=== PATIENT | female | born 1945 | race Two or more races ===

== ENCOUNTER 2020-10-11 16:47 | Outpatient (REF) | payer MEDICARE, SELFPAY ==
[2020-10-11 16:54] LABS: Glucose Urine UA NEG (NEG); Leukocyte Esterase Urine NEG (NEG); Nitrite Urine NEG (NEG); Urine Blood NEG (NEG); Urine Ketones NEG (NEG); Urine Protein NEG (NEG-TRACE)
[2020-10-11 16:56] LABS: Appearance Urine HAZY; Color Urine YELLOW
== END 2020-10-11 16:48 | disposition home or self-care (01) ==
LOC: HO.LNP 16:47
PROVIDERS: Visit Provider Internal Medicine
DX: R30.0 Dysuria (principal)
CPT/HCPCS: 81003

== ENCOUNTER 2021-02-22 15:20 | Outpatient (REF) | payer MEDICARE, SELFPAY ==
[2021-02-22 16:30] LABS: Hematocrit 43.1 % (37-47); Hemoglobin 13.6 g/dl (12.0-16.0); Mean Corpuscular HGB Conc 31.6 g/dl (31.0-35.0); Mean Corpuscular Hemoglobin 29.2 pg (27.0-33.0); Mean Corpuscular Volume 92.7 fL (80-98); Mean Platelet Volume 10.9 fL (9.4-12.3); Platelet Count 259 X10*3/uL (160-400); Red Blood Count 4.65 X10*6/uL (4.20-5.50); Red Cell Distribution Width 14.7 % (11.0-16.0); White Blood Count 7.1 X10*3/uL (4.8-10.8)
[2021-02-22 16:44] LABS: Glucose Urine UA NEG (NEG); Leukocyte Esterase Urine NEG (NEG); Nitrite Urine NEG (NEG); Specific Gravity - Urine >= 1.030 (1.005-1.025); Urine Blood NEG (NEG); Urine Ketones NEG (NEG); Urine Protein NEG (NEG-TRACE)
[2021-02-22 16:46] LABS: Appearance Urine HAZY; Color Urine YELLOW
[2021-02-22 16:54] LABS: Alanine Aminotransferase 32 U/L (0-31); Albumin Level 3.8 g/dL (3.5-5.0); Alkaline Phosphatase 171 U/L (39-117); Anion Gap 10 (12-20); Aspartate Amino Transferase 27 U/L (5-31); Bilirubin Total 0.6 mg/dL (0.0-1.0); Blood Urea Nitrogen 14 mg/dL (9-16); Calcium 8.9 mg/dL (8.4-10.2); Carbon Dioxide 29 mmol/L (22-29); Chloride 106 mmol/L (96-108); Estimated Glomerular Filt Rate > 60; Glucose Random 87 mg/dL (60-115); Sodium 141 mmol/L (135-145); Total Protein 7.2 g/dL (6.5-8.0)
== END 2021-02-22 15:21 | disposition home or self-care (01) ==
LOC: HO.HMGCLDS 15:20
PROVIDERS: PCP Internal Medicine; Visit Provider Internal Medicine
DX: R10.9 Unspecified abdominal pain (principal); R30.0 Dysuria
CPT/HCPCS: 36415; 80053; 81003; 85027

== ENCOUNTER 2021-10-25 10:46 | Outpatient (REF) | payer MEDICARE, SELFPAY ==
[2021-10-25 14:03] LABS: Hematocrit 46.3 % (37.0-47.0); Hemoglobin 14.8 g/dl (12.0-16.0); Mean Corpuscular Hemoglobin 29.5 pg (27.0-33.0); Mean Corpuscular Volume 92.4 fL (80.0-98.0); Mean Platelet Volume 11.9 fL (9.4-12.3); Platelet Count 256 X10*3/uL (160-400); Red Blood Count 5.01 X10*6/uL (4.20-5.50); Red Cell Distribution Width 14.5 % (11.0-16.0); White Blood Count 9.8 X10*3/uL (4.8-10.8)
[2021-10-25 14:34] LABS: Alanine Aminotransferase 42 U/L (0-31); Albumin Level 3.8 g/dL (3.5-5.0); Alkaline Phosphatase 189 U/L (39-117); Anion Gap 12 (12-20); Aspartate Amino Transferase 23 U/L (5-31); Bilirubin Total 0.8 mg/dL (0.0-1.0); Blood Urea Nitrogen 17 mg/dL (9-16); C Reactive Protein 0.06 mg/dL (< or = 0.50); Calcium 8.7 mg/dL (8.4-10.2); Carbon Dioxide 26 mmol/L (22-29); Chloride 104 mmol/L (96-108); Cholesterol 198 mg/dL; Estimated Glomerular Filt Rate > 60; Glucose Fasting 89 mg/dL (60-99); HDL Cholesterol 66 mg/dL; LDL Cholesterol Calculated 110 mg/dl; Potassium 4.3 mmol/L (3.3-5.1); Sodium 138 mmol/L (135-145); Total Protein 7.4 g/dL (6.5-8.0); Triglycerides 113 mg/dL
[2021-10-25 14:39] LABS: TSH reflex Free T4 6.86 uIU/mL (0.32-4.0)
[2021-10-25 15:23] LABS: Free T4 (Free Thyroxine) 0.84 ng/dL (0.71-1.85)
== END 2021-10-25 10:47 | disposition home or self-care (01) ==
LOC: HO.HMGCLDS 10:46
PROVIDERS: Visit Provider Internal Medicine
DX: I10 Essential (primary) hypertension (principal); R53.83 Other fatigue
CPT/HCPCS: 36415; 80053; 80061; 84439; 84443; 85027; 86140

== ENCOUNTER 2021-11-14 08:30 | Outpatient (REF) | payer MEDICARE, SELFPAY | END 2021-11-14 08:31 | disposition home or self-care (01) | LOC: HO.HOSX 08:30 | PROVIDERS: Visit Provider Orthopaedic Surgery | DX: Z13.89 Encounter for screening for other disorder (principal) ==

== ENCOUNTER 2021-11-24 08:55 | Outpatient (REF) | payer MEDICARE, SELFPAY | END 2021-11-24 08:56 | disposition home or self-care (01) | LOC: HO.HOSX 08:55 | PROVIDERS: Visit Provider Orthopaedic Surgery | DX: Z13.89 Encounter for screening for other disorder (principal) ==

== ENCOUNTER 2022-04-27 06:06 | Outpatient (REF) | payer MEDICARE, SELFPAY ==
[2022-04-27 11:51] LABS: Appearance Urine CLEAR; Color Urine YELLOW; Glucose Urine UA NEG (NEG); Leukocyte Esterase Urine NEG (NEG); Nitrite Urine NEG (NEG); PH 6.5 (5.0-8.0); Urine Blood NEG (NEG); Urine Ketones NEG (NEG); Urine Protein NEG (NEG-TRACE)
[2022-04-27 12:30] LABS: TSH reflex Free T4 7.77 uIU/mL (0.32-4.0)
[2022-04-27 12:33] LABS: Alanine Aminotransferase 19 U/L (0-31); Albumin Level 3.6 g/dL (3.5-5.0); Alkaline Phosphatase 262 U/L (39-117); Anion Gap 13 (12-20); Aspartate Amino Transferase 20 U/L (5-31); Bilirubin Total 0.3 mg/dL (0.0-1.0); Blood Urea Nitrogen 17 mg/dL (9-16); Calcium 8.3 mg/dL (8.4-10.2); Carbon Dioxide 26 mmol/L (22-29); Chloride 108 mmol/L (96-108); Estimated Glomerular Filt Rate > 60; Glucose Fasting 99 mg/dL (60-99); Potassium 4.2 mmol/L (3.3-5.1); Sodium 143 mmol/L (135-145); Total Protein 6.9 g/dL (6.5-8.0)
== END 2022-04-27 06:07 | disposition home or self-care (01) ==
LOC: HO.HMGCLDS 06:06
PROVIDERS: PCP Internal Medicine; Visit Provider Internal Medicine
DX: I10 Essential (primary) hypertension (principal); R30.0 Dysuria; E03.9 Hypothyroidism, unspecified
CPT/HCPCS: 36415; 80053; 81003; 84439; 84443

== ENCOUNTER 2022-05-04 11:19 | Outpatient (REF) | payer MEDICARE, SELFPAY ==
[2022-05-04 14:10] LABS: Gamma Glutamyl Transpeptidase 29 U/L (7-33)
[2022-05-10 14:56] LABS: Anti Nuclear Antibody Screen NEGATIVE (NEGATIVE)
[2022-05-10 16:11] LABS: Mitochondrial Antibodies NEGATIVE (NEGATIVE)
== END 2022-05-04 11:20 | disposition home or self-care (01) ==
LOC: HO.HMGCLDS 11:19
PROVIDERS: PCP Internal Medicine; Visit Provider Internal Medicine
DX: R74.8 Abnormal levels of other serum enzymes (principal); R10.9 Unspecified abdominal pain
CPT/HCPCS: 36415; 82977; 86038; 86039; 86255; 86256

== ENCOUNTER 2023-01-31 11:10 | Outpatient (REF) | payer MEDICARE, SELFPAY ==
--- NOTE | ~2023-01-31 | XR_ITS ---
EXAMINATION: XR LUMBOSACRAL SPINE CLINICAL INFORMATION: Hypothyroidism. COMPARISON: None available. TECHNIQUE: Three views of the lumbosacral spine. FINDINGS: There is normal lumbar lordosis. The vertebral heights, alignment and disc heights are normal. There is moderate ventral spondylosis lower dorsal and upper lumbar spine. No aggressive lytic or sclerotic process seen the SI joints are symmetrical and normal. The paravertebral soft tissues are normal. XR/XR lumbar spine 2-3V IMPRESSION: Moderate ventral spondylosis lower dorsal and upper lumbar spine. No visible acute fracture, dislocation or lytic process seen.
[2023-01-31 13:53] LABS: MANUAL DIFF FLAG NO
[2023-01-31 14:16] LABS: Basophils Percent Auto 0.5 % (0-2); Eosinophils Absolute Auto 0.2 X10*3/uL (0.0-0.4); Eosinophils Percent Auto 3.2 % (0-4); Hemoglobin 13.2 g/dl (12.0-16.0); Imm Gran Abs Auto 0.04 X10*3/uL (0.00-0.03); Imm Gran Pct Auto 0.7 % (0.0-0.4); Lymphocytes Percent Auto 17.1 % (20-40); Mean Corpuscular HGB Conc 31.4 g/dl (31.0-35.0); Mean Corpuscular Volume 92.3 fL (80.0-98.0); Mean Platelet Volume 11.4 fL (9.4-12.3); Monocytes Absolute Auto 0.3 X10*3/uL (0.1-1.2); Monocytes Percent Auto 5.3 % (2-11); Neutrophils Absolute Auto 4.4 x10*3/uL (2.0-8.3); Neutrophils Percent Auto 73.2 % (45-73); Platelet Count 213 X10*3/uL (160-400); Red Blood Count 4.55 X10*6/uL (4.20-5.50); Red Cell Distribution Width 14.1 % (11.0-16.0)
[2023-01-31 14:33] LABS: Alanine Aminotransferase 21 U/L (0-31); Albumin Level 3.6 g/dL (3.5-5.0); Alkaline Phosphatase 195 U/L (39-117); Anion Gap 9 (12-20); Aspartate Amino Transferase 22 U/L (5-31); Bilirubin Total 0.5 mg/dL (0.0-1.0); Blood Urea Nitrogen 12 mg/dL (9-16); Calcium 8.8 mg/dL (8.4-10.2); Carbon Dioxide 31 mmol/L (22-29); Chloride 107 mmol/L (96-108); Cholesterol 185 mg/dL; Estimated Glomerular Filt Rate > 60; Glucose Fasting 89 mg/dL (60-99); HDL Cholesterol 59 mg/dL; LDL Cholesterol Calculated 106 mg/dl; Potassium 4.8 mmol/L (3.3-5.1); Sodium 142 mmol/L (135-145); Total Protein 6.9 g/dL (6.5-8.0); Triglycerides 102 mg/dL
== END 2023-01-31 11:11 | disposition home or self-care (01) ==
LOC: HO.HMGCX 11:10
PROVIDERS: PCP Internal Medicine; Visit Provider Internal Medicine
DX: E03.9 Hypothyroidism, unspecified (principal); I10 Essential (primary) hypertension; M47.816 Spondylosis without myelopathy or radiculopathy, lumbar region
CPT/HCPCS: 36415; 72100; 80053; 80061; 85025

== ENCOUNTER 2023-07-11 11:13 | Outpatient (AMB) | payer MEDICARE, SELFPAY ==
[2023-07-11 11:24] VITALS: BP 130/80; PULSE 94; O2SAT 99; BMI 31.6
--- NOTE | 2023-07-11 11:24 | A.OFFPC_ITS ---
Vital Signs 07/11/23 11:24 Height 4 ft 10 in Weight 151 lb BMI 31.6 BP 130/80 Blood Pressure Location Lt brachial Position Sitting Pulse 94 Pulse Source Pulse Oximeter Pulse Oximetry (%) 99 Oxygen Delivery Method Room Air Intake Visit Reasons: Annual Physical Intake Note: Pt is here today for PE. Allergies acetaminophen [Tylenol] Allergy (Unknown, Verified 07/11/23 11:28) upset stomach sertraline Adverse Reaction (Intermediate, Verified 07/11/23 11:28) sleepiness Medication List - Last Reconciled 07/11/23 by Mayi Perez MD diclofenac sodium 1% 2 grams topical QID metoprolol succinate ER 100 mg PO DAILY omeprazole 40 mg PO DAILY phenazopyridine (Pyridium) 100 mg PO TID PRN 6 doses Tobacco use date assessed: 07/11/23 HPI HPI Comments History of Present Illness Details Pt presents for f/u HTN. Pt follows up with for advanced OA of R knee with [facility] and is planning to have a knee replacement surgery. She complains of feeling anxious and depressed but denies suicidal ideation. She tries sertraline in the past because excessive sleepiness. [facility] Medical History (Updated 07/11/23 @ 12:05 by Mayi Perez MD) GERD (gastroesophageal reflux disease) Anxiety Fatigue Knee osteoarthritis Depression Abdominal pain Dysuria Positive H. pylori test Chronic constipation Urinary frequency HTN (hypertension) Surgical History Hx of cholecystectomy H/O colonoscopy Social History Housing: House Patient Tobacco Use Status: Never used Tobacco e-Cigarette/Vaping Use: Never Used Current occupational status: retired Cognitive needs: No Hearing needs: No Vision needs: Yes Questionnaire PHQ-9 Over the last 2 weeks, how often have you been bothered by any of the following problems? 1. Little interest or pleasure in doing things: not at all 2. Feeling down, depressed, or hopeless: not at all 3. Trouble falling or staying asleep, or sleeping too much: not at all 4. Feeling tired or having little energy: not at all 5. Poor appetite or overeating: not at all 6. Feeling bad about yourself - or that you are a failure or have let yourself or your family down: not at all 7. Trouble concentrating on things, such as reading the newspaper or watching television: not at all 8. Moving or speaking so slowly that other people could have noticed. Or the opposite - being so fidgety or restless that you have been moving around a lot more than usual: not at all 9. Thoughts that you would be better off or of hurting yourself in some way : not at all Total score: 0 Depression Screening Interpretation: Negative Depression Screening Done: Yes Source: Developed by Drs. Idris Avendaño, Ebonie Muir, Sumanth Steele and colleagues, with an educational kathia from [employer]. Thrive Questionnaire Date Thrive assessed: 07/11/23 I am a: Patient What is your living situation today?: I have a steady place to live Within the past 12 months, did the food you bought not last and you didn't have the money to get more?: Never true Within the past 12 months, did you worry whether your food would run out before you got money to buy more?: Never true Do you have trouble paying for medicines?: No Do you have trouble getting transportation to medical appointments?: No Do you have trouble paying your heating and electricity bill?: No Do you have trouble taking care of your child, family member or friend?: No Do you have trouble with day-to-day activities such as bathing, preparing meals, shopping, managing finances, etc.?: No Are you currently unemployed and looking for a job?: No Are you interested in more education?: No Please select the resources that you would like help with: None AUDIT C Alcohol Use Questionnaire (AUDIT-C) 1. How often do you have a drink containing alcohol?: Never 3. How often do you have six or more drinks on one occasion?: Never Total Score: 0 CANDY-7 AMB Questionnaire CANDY-7 Date CANDY - 7 assessed: 07/11/23 Feeling nervous, anxious, or on edge: 0 = Not at all Not being able to stop or control worryin = Not at all Worrying too much about different things: 0 = Not at all Trouble relaxin = Not at all Being so restless that it is hard to sit still: 0 = Not at all Becoming easily annoyed or irritable: 0 = Not at all Feeling afraid as if something awful might happen: 0 = Not at all Total CANDY-7 score (0-4 normal; 5-9 mild; 10-14 moderate; 15-21 severe): 0 Source: Developed by Drs. Idris Avendaño, Ebonie Muir, Sumanth Steele and colleagues, with an educational kathia from [employer]. Review of Systems Const All systems reviewed & are unremarkable except as noted in HPI and below Reports no additional complaints Eyes Reports no additional complaints ENT Reports no additional complaints Card Reports no additional complaints Resp Reports no additional complaints GI Reports no additional complaints Reports no additional complaints Physical exam (Primary Care) Vital Signs: Last Vital Signs Pulse 94 07/11/23 11:24 BP 130/80 07/11/23 11:24 Pulse Ox 99 07/11/23 11:24 Oxygen Delivery Method Room Air 07/11/23 11:24 BMI result Body Mass Index 31.6 Tobacco/Smoking Status: Tobacco use Status Tobacco use date assessed 07/11/23 07/11/23 11:31 Patient Tobacco Use Status Never used Tobacco 07/11/23 11:31 e-Cigarette/Vaping Use Never Used 07/11/23 11:31 PHQ-9: PHQ-9 Score PHQ-9: Total score 0 07/11/23 12:03 Depression Screening Interpretation: Negative Thrive Assessment: Date of Thrive Assessment Date Thrive assessed 07/11/23 07/11/23 11:31 Const General: no acute distress HENMT Head: Yes normal to inspection Ears: hearing grossly normal bilaterally Face and sinus: Yes normal facial exam Throat: Yes posterior oropharynx normal Neck Neck: Yes no lymphadenopathy and Yes supple Resp Effort & Inspection: normal respiratory effort Auscultation: clear to auscultation bilaterally Cardio Rhythm: regular rhythm Heart sounds: S1 normal heart sound present and S2 normal heart sound present GI Inspection: Yes normal to inspection Palpation (GI): Soft to palpation Percussion: Yes normal to percussion Auscultation: normal bowel sounds Assessment and Plan Assessment & Plan (1) Urinary frequency: Comment: follow up with urology Code(s): R35.0 - Frequency of micturition (2) Knee osteoarthritis: Comment: ortho [facility] Code(s): M17.10 - Unilateral primary osteoarthritis, unspecified knee (3) Hypothyroid: Code(s): E03.9 - Hypothyroidism, unspecified Plan: Check TSH level today (4) HTN (hypertension): Comment: BP goal less than 130/80 Code(s): I10 - Essential (primary) hypertension Plan: Continue metoprolol (5) Anxiety: Code(s): F41.9 - Anxiety disorder, unspecified Plan: Start 10 mg of fluoxetine Orders: Orders UA w Microscopic Today R35.0 - Frequency of micturition TSH reflex Free T4 Today E03.9 - Hypothyroidism, unspecified Comprehensive Met. Panel Today E03.9 - Hypothyroidism, unspecified Medications: New fluoxetine 10 mg PO DAILY 30 caps 4RF Coding Level of Care Code Est Pt Level 4 (39480) Diagnoses Urinary frequency R35.0 Knee osteoarthritis M17.10 Hypothyroid E03.9 HTN (hypertension) I10 Anxiety F41.9
== END 2023-07-11 12:22 | disposition home or self-care (01) ==
PROVIDERS: PCP Internal Medicine; Visit Provider Internal Medicine
DX: R35.0 Frequency of micturition (principal); M17.10 Unilateral primary osteoarthritis, unspecified knee; E03.9 Hypothyroidism, unspecified; I10 Essential (primary) hypertension; F41.9 Anxiety disorder, unspecified
CPT/HCPCS: 99214

== ENCOUNTER 2023-07-11 12:17 | Outpatient (REF) | payer MEDICARE, SELFPAY ==
[2023-07-11 14:20] LABS: Appearance Urine Cloudy; Color Urine Yellow; Glucose Urine UA Negative (Negative); Leukocyte Esterase Urine Small (1+) (Negative); Nitrite Urine Negative (Negative); UMIC TRIGGER UA YES; Urine Blood Negative (Negative); Urine Ketones Negative (Negative); Urine Protein Trace mg/dL (Neg-Trace)
[2023-07-11 14:24] LABS: Bacteria Urine 2+ (None Seen); Hyaline Casts Urine 0-2 /LPF (0-2); RBC Urine 0-2 /HPF (0-2); Squamous Epithelial Cell Urine >20 /HPF (0-2)
[2023-07-11 14:40] LABS: Alanine Aminotransferase 21 U/L (0-31); Albumin Level 3.8 g/dL (3.5-5.0); Alkaline Phosphatase 167 U/L (39-117); Anion Gap 11 (12-20); Aspartate Amino Transferase 21 U/L (5-31); Bilirubin Total 0.5 mg/dL (0.0-1.0); Blood Urea Nitrogen 9 mg/dL (9-16); Calcium 9.4 mg/dL (8.4-10.2); Carbon Dioxide 27 mmol/L (22-29); Chloride 107 mmol/L (96-108); Estimated Glomerular Filt Rate > 60; Glucose Random 93 mg/dL (60-115); Potassium 4.3 mmol/L (3.3-5.1); Sodium 141 mmol/L (135-145); Total Protein 7.7 g/dL (6.5-8.0)
[2023-07-11 14:57] LABS: TSH reflex Free T4 4.17 uIU/mL (0.32-4.0)
[2023-07-11 15:30] LABS: Free T4 (Free Thyroxine) 1.06 ng/dL (0.71-1.85)
== END 2023-07-11 12:18 | disposition home or self-care (01) ==
LOC: HO.HMGCLDS 12:17
PROVIDERS: PCP Internal Medicine; Visit Provider Internal Medicine
DX: R35.0 Frequency of micturition (principal); E03.9 Hypothyroidism, unspecified
CPT/HCPCS: 36415; 80053; 81001; 84439; 84443

== ENCOUNTER 2023-07-19 10:52 | Outpatient (REF) | payer MEDICARE, SELFPAY ==
[2023-07-19 14:06] LABS: Appearance Urine Clear; Color Urine Yellow; Glucose Urine UA Negative (Negative); Leukocyte Esterase Urine Small (1+) (Negative); Nitrite Urine Negative (Negative); Specific Gravity - Urine 1.015 (1.005-1.025); UMIC TRIGGER UA YES; Urine Blood Negative (Negative); Urine Ketones Negative (Negative); Urine Protein Negative (Neg-Trace)
[2023-07-19 14:27] LABS: Bacteria Urine Trace (None Seen); Hyaline Casts Urine 0-2 /LPF (0-2)
== END 2023-07-19 10:53 | disposition home or self-care (01) ==
LOC: HO.HMGCLDS 10:52
PROVIDERS: PCP Internal Medicine; Visit Provider Internal Medicine
DX: R35.0 Frequency of micturition (principal)
CPT/HCPCS: 81001; 87086

== ENCOUNTER 2023-08-04 12:02 | Outpatient (AMB) | payer MEDICARE, MEDICAID, SELFPAY ==
--- NOTE | 2023-08-04 13:03 | MHC.OFFWIV ---
Intake Vital Signs 08/04/23 13:10 Weight 145 lb BP 110/78 Blood Pressure Location Lt brachial Pulse 72 Pulse Source Pulse Oximeter Temp 98.3 F Temp Source Oral Pulse Oximetry (%) 97 Oxygen Delivery Method Room Air Intake Visit Reasons: EST/RSV exposure ([id number]) Intake Note: Pt's kim tested positive for RSV appx 3 weeks ago. Symptoms of coughing, fever, headache, fast heart rate x 1 week. Last night she had the chills and dizziness. Patient Tobacco Use Status: Never used Tobacco Allergies acetaminophen [Tylenol] Allergy (Unknown, Verified 08/04/23 13:10) upset stomach sertraline Adverse Reaction (Intermediate, Verified 08/04/23 13:10) sleepiness HPI EST/RSV exposure ([id number]) HPI Details Patient is a 78-year-old elderly female who is only medical history is hypothyroidism and hypertension. She comes to the walk-in clinic complaining of about 2 weeks respiratory complaints, including nasal congestion, chills, cough, mild fatigue, racing heart rate, and as of yesterday started to develop intermittent chest pressure as well as shortness of breath. Her son has similar symptoms and was diagnosed with pneumonia yesterday, so this is a concern for her. Her grandchild was positive for COVID 3 weeks ago, who lives in the house with them. [facility] Medical History GERD (gastroesophageal reflux disease) Anxiety Fatigue Knee osteoarthritis Depression Abdominal pain Dysuria Positive H. pylori test Chronic constipation Urinary frequency HTN (hypertension) Surgical History Hx of cholecystectomy H/O colonoscopy Social History Housing: House Patient Tobacco Use Status: Never used Tobacco e-Cigarette/Vaping Use: Never Used Current occupational status: retired Cognitive needs: No Hearing needs: No Vision needs: Yes Review of Systems Const All systems reviewed & are unremarkable except as noted in HPI and below Physical Exam Vital Signs: Last Vital Signs Temp 98.3 F 08/04/23 13:10 Pulse 72 08/04/23 13:10 BP 110/78 08/04/23 13:10 Pulse Ox 97 08/04/23 13:10 Oxygen Delivery Method Room Air 08/04/23 13:10 Const General: cooperative, no acute distress, alert, awake, Physically active, acute distress mild, ill appearing, tired appearing and well groomed; No comfortable, anxious, diaphoretic, intoxicated appearing or poor hygiene Nutritional Appearance: obese Orientation/consciousness: patient oriented x3 HEENT Head: Yes normal to inspection, Yes normocephalic and Yes atraumatic Ears: hearing grossly normal bilaterally, external ears normal, TM's normal bilaterally and EAC's normal General nose exam: Normal external nose present, Normal nares present, No nasal polyps present, Normal nasal mucous membranes and turbinates present, Normal septum present and No nasal discharge present Face and sinus: Yes normal facial exam, Yes sinuses nontender and Yes face symmetric Mouth: Normal oral and palatal mucosa present, lip normal and tongue normal Throat: Yes posterior oropharynx normal, No peritonsillar mass, No postnasal drainage, No uvular edema and No cobblestoning Eyes General: appearance normal, both eyes and all related structures Neck Neck: Yes normal visual inspection, Yes trachea midline, Yes supple and No anterior neck swelling Resp Effort & Inspection: normal respiratory effort, able to speak in complete sentences, normal respiratory pattern, no audible wheezes, Actively coughing (Frequent coughing) Quality: dry, respiratory effort not decreased, no grunting, labored (Very mildly), no nasal flaring, no retractions, no stridor, not tachypneic, no tracheal deviation, tripod positioning (Mildly), no use of accessory muscles, No prolonged expiratory phase and symmetric chest movement Auscultation: clear to auscultation bilaterally, no crackles, no rales, no rhonchi, no wheezes and No rub present Cardio Rate: regular rate Skin Other: Good color, warm and dry Neuro General: patient oriented x3 Psych Appearance: grossly normal Mental Status: mental status grossly normal Speech and movement: Normal speech and movement present Affect: normal affect Attitude: cooperative Thought process: Normal thought process present Insight: Good insight present (Psych) Judgement: Good judgement present (Psych) Results Reviewed Results Reviewed: Two view chest x-ray today shows apparent atelectasis, suspicious for pneumonia although no clear consolidation noted on my wet read Assessment & Plan Assessment & Plan (1) Lower respiratory infection: Code(s): J22 - Unspecified acute lower respiratory infection Plan: Patient is an elderly female who comes in with family, with known RSV exposure from her grandchild. Patient's son was also recently diagnosed positive and was suspicious for pneumonia. Patient has had persistent cough since getting sick almost 2 weeks ago. She has had persistent coughing fits, and complains of chest discomfort with cough. Her vital signs are stable, and she is currently not short of breath, however she does have a tired appearance and chest x-ray shows atelectasis and based on her presentation I am concerned about viral pneumonia. I discussed with patient and her son that I would treat her with antibiotics and a course of steroids, but she should have close monitoring for this, and she should go to the emergency department if her symptoms do not improved tomorrow, or worsen at all. Son and patient agreed to this. I also wrote her for a course of Tessalon Perles to trial for the cough. Pending flu COVID and RSV testing. Orders: Orders SARS-CoV2/FLU/RSV 08/04/23 R05.9 - Cough, unspecified XR chest 2V 08/04/23 R05.9 - Cough, unspecified BinaxNOW Covid-19 Ag 08/04/23 Z20.822 - Contact with and (suspected) exposure to COVID-19 Medications: New azithromycin take 500 mg today (day 1), then 250 mg for 4 days (days 2-5) PO 6 tabs 0RF benzonatate 100 mg PO BID-TID PRN 30 caps 0RF cough prednisone then take 2 and half tabs daily for 3 days, then take 2 tabs daily for 3 days, then take 1 and half tabs daily for 3 days, and then take 1 tab daily for 3 days 60 mg (3 x 20 mg) PO DAILY 30 tabs 0RF 3 days Coding Level of Care Code Est Pt Level 4 (97803) Diagnoses Lower respiratory infection J22
[2023-08-04 13:10] VITALS: BP 110/78; PULSE 72; TEMP 36.8; O2SAT 97
== END 2023-08-04 14:41 | disposition home or self-care (01) ==
PROVIDERS: PCP Internal Medicine; Visit Provider Physician Assistant Medical
DX: J22 Unspecified acute lower respiratory infection (principal)
CPT/HCPCS: 99051; 99214

== ENCOUNTER 2023-08-04 14:06 | Outpatient (REF) | payer MEDICARE, SELFPAY ==
--- NOTE | ~2023-08-04 | XR_ITS ---
EXAMINATION: XR CHEST CLINICAL INFORMATION: Cough. COMPARISON: None available. TECHNIQUE: 2 views of the chest were obtained. FINDINGS: Low lung volumes are present with the fourth anterior rib segments terminating projection with the lung bases. Left base coarse reticular opacities predominantly in a horizontal orientation are noted. No effusions or pneumothoraces. Normal cardiac silhouette making allowances for low lung volumes. Convex rightward scoliosis of the thoracic spine. XR/XR chest 2V IMPRESSION: *Low lung volumes. *Mild right base coarse reticular opacities in a predominantly horizontal orientation. Findings are most suspicious for platelike atelectasis in the setting of low lung volumes. Mild pulmonary consolidation process of a similar appearance.
== END 2023-08-04 14:07 | disposition home or self-care (01) ==
LOC: HO.HMGCX 14:06
PROVIDERS: PCP Internal Medicine; Visit Provider Physician Assistant Medical
DX: R05.9 Cough, unspecified (principal)
CPT/HCPCS: 71046

== ENCOUNTER 2023-08-04 14:34 | Outpatient (REF) | payer MEDICARE, SELFPAY ==
[2023-08-04 15:50] LABS: Influenza A PCR NEGATIVE (Negative); Influenza B PCR NEGATIVE (Negative); Resp Syncy Virus RNA Qual PCR POSITIVE (Negative); SARS COV2 PCR INHOUSE NEGATIVE (Negative)
== END 2023-08-04 14:35 | disposition home or self-care (01) ==
LOC: HO.LAB 14:34
PROVIDERS: Visit Provider Physician Assistant Medical
DX: Z11.52 Encounter for screening for COVID-19 (principal); Z20.822 Contact with and (suspected) exposure to COVID-19; R05.9 Cough, unspecified
CPT/HCPCS: 0241U

== ENCOUNTER 2024-09-02 08:04 | Outpatient (AMB) | payer MEDICARE, MEDICAID, SELFPAY ==
--- OUTSIDE RECORDS SUMMARY | 2024-09-02 08:07 | XMS_ITS | Continuity of Care Document ---
Author Organization [facility] Address [address] [place] [address] [address] [place] [address] Phone Care Team Providers Care Fur Tailor Name Role Phone Puja Romero MD, FACS, RVT Unavailable Unavailable Allergies, Adverse Reactions, Alerts Substance Reaction Status Criticality acetaminophen Active No Information Medications Medication Instructions Dosage Effective Dates (start - stop) Status Comments metoprolol succinate ER 100 mg tablet,extended release 24 hr - Active Procedures Procedure Date Duplex Scan-extrem Veins; Comp Office/Outpt E&M Established 15 Mins Feb Advance Directives Directive Yes / No Effective Date File Name No Information Encounters Encounter Description Practice Location Reason(s) For Visit Diagnoses Date Provider Providers Copied on Encounter [facility], [address] [place] [address] [address], [place], [id number], [place] tel:[phone] No Information 3 Martell Saunders. [address], [address], [place]. tel:[phone] Referring Provider: Mayi Perez MD S, [address] [place] [address], [address]. tel:[phone] [facility], [address] [place] [address] [address], [id number], [place] tel:[phone] [facility] Chronic venous htn w oth comp of bilateral low extrm 3 Martell Saunders. [address] [facility], [address], [place], [address], [place]. tel:[phone] Referring Provider: Mayi Perez MD S, [address], [place], [address]. tel:[phone] Office/Outpt E&M Established 15 Mins [facility], [address], [place], [id number], [place] tel:[phone] [facility] [place] Chronic venous hypertension w/o comp of bilateral low extrm 3 Martell GONZALEZ FACS T DRAKE Saunders. [address] [facility], [address], [place], [address], [place]. tel:[phone] Referring Provider: Mayi Perez MD S, [address], [place], [address]. tel:[phone] Family History Family Member Type Diagnosis Age At Onset No Information Payers Payer name Insurance type Covered republican ID Authoriza tion(s) [facility] AARP Medic are Complete CI [id number] Social History Type Description Quantity Date Captured Comments Sex Female Smoking Status No Information Chief Complaint And Reason For Visit No Information Reason For Referral Reason For Referral No Information History Of Present Illness Encounter Date Complaint History Of Prese nt Illness No Information Functional Status Date Functional Assessmen t No Information Instructions Date Instruction Additional Infor mation No Information Assessments Type Assessment Date No Information Patient Care Teams Name Effective Dates (start - stop) Status Members No Information
--- NOTE | 2024-09-02 08:09 | MHC.PC.OV ---
Vital Signs 09/02/24 08:10 Height 4 ft 10 in Weight 139 lb BMI 29.0 BP 118/78 Blood Pressure Location Rt brachial Position Sitting Pulse 86 Pulse Source Pulse Oximeter Pulse Oximetry (%) 98 Oxygen Delivery Method Room Air Intake Visit Reasons: Annual PE - see comments Intake Note: Pt is here today for PE. Allergies acetaminophen [Tylenol] Allergy (Unknown, Verified 09/02/24 08:12) upset stomach sertraline Adverse Reaction (Intermediate, Verified 09/02/24 08:12) sleepiness Medication List - Last Reconciled 09/02/24 by Mayi Perez MD amlodipine 5 mg PO DAILY PRN metoprolol succinate ER 100 mg PO DAILY omeprazole 40 mg PO DAILY PRN sertraline 25 mg PO DAILY PRN Tobacco use date assessed: 09/02/24 Fall risk assessment: 2 + Falls in past year Last assessed Fall Risk: 09/02/24 Dental Screening Dental Screen Date: 09/02/24 Did you have a dental visit in the last 12 months?: Yes Did you have a dental problem in the last 6 months where you did not have access to dental care?: No Was dental information given to patient?: Patient has dentist HPI Annual PE - see comments HPI Details Pt presents for PE. patient underwent sigmoidectomy for colovesical fistula complicated with acute renal failure at [facility] in February. She recovered well and follow-up with nephrology and Urology. [facility] Medical History GERD (gastroesophageal reflux disease) Anxiety Fatigue Knee osteoarthritis Depression Abdominal pain Dysuria Positive H. pylori test Chronic constipation Urinary frequency HTN (hypertension) Surgical History Hx of cataract surgery History of partial colectomy Hx of total knee replacement Hx of cholecystectomy H/O colonoscopy Family History Father Blind Mother Hypertension CHF (congestive heart failure) Social History Housing: House Patient Tobacco Use Status: Never used Tobacco e-Cigarette/Vaping Use: Never Used service: No Current occupational status: retired Cognitive needs: No Hearing needs: No Vision needs: Yes Questionnaire PHQ-9 Over the last 2 weeks, how often have you been bothered by any of the following problems? 1. Little interest or pleasure in doing things: several days 2. Feeling down, depressed, or hopeless: several days 3. Trouble falling or staying asleep, or sleeping too much: several days 4. Feeling tired or having little energy: several days 5. Poor appetite or overeating: several days 6. Feeling bad about yourself - or that you are a failure or have let yourself or your family down: not at all 7. Trouble concentrating on things, such as reading the newspaper or watching television: several days 8. Moving or speaking so slowly that other people could have noticed. Or the opposite - being so fidgety or restless that you have been moving around a lot more than usual: not at all 9. Thoughts that you would be better off or of hurting yourself in some way: not at all Total score: 6 Depression Screening Interpretation: Negative Depression Screening Done: Yes 54180 - PHQ-9 Billing: Yes Source: Developed by Drs. Idris Avendaño, Ebonie Muir, Sumanth Steele and colleagues, with an educational kathia from [employer]. Thrive Questionnaire Date Thrive assessed: 09/02/24 I am a: Patient What is your living situation today?: I have a steady place to live Within the past 12 months, did the food you bought not last and you didn't have the money to get more?: Never true Within the past 12 months, did you worry whether your food would run out before you got money to buy more?: Never true Do you have trouble paying for medicines?: No Do you have trouble getting transportation to medical appointments?: No Do you have trouble paying your heating and electricity bill?: No Do you have trouble taking care of your child, family member or friend?: No Do you have trouble with day-to-day activities such as bathing, preparing meals, shopping, managing finances, etc.?: No Are you currently unemployed and looking for a job?: No Are you interested in more education?: No Please select the resources that you would like help with: None Currently or been in a relationship where the following occur: No concerns reported THRIVE Score: 0 AUDIT C Alcohol Use Questionnaire (AUDIT-C) 1. How often do you have a drink containing alcohol?: Monthly or less 2. How many drinks containing alcohol do you have on a typical day when you are drinking?: 1 or 2 3. How often do you have six or more drinks on one occasion?: Never Total Score: 1 CANDY-7 AMB Questionnaire CANDY-7 Date CANDY - 7 assessed: 09/02/24 Feeling nervous, anxious, or on edge: 1 = Several days Not being able to stop or control worryin = Several days Worrying too much about different things: 1 = Several days Trouble relaxin = Several days Being so restless that it is hard to sit still: 0 = Not at all Becoming easily annoyed or irritable: 1 = Several days Feeling afraid as if something awful might happen: 0 = Not at all Total CANDY-7 score (0-4 normal; 5-9 mild; 10-14 moderate; 15-21 severe): 5 Source: Developed by Drs. Idris Avendaño, Ebonie Muir, Sumanth Steele and colleagues, with an educational kathia from [employer]. CANDY-7 Assessment Billing CANDY-7 Assessment Tool: CANDY-7 Assessment 81826 Review of Systems Const All systems reviewed & are unremarkable except as noted in HPI and below Eyes Reports no additional complaints ENT Reports no additional complaints Card Reports no additional complaints Resp Reports no additional complaints GI Reports no additional complaints Reports no additional complaints Physical exam (Primary Care) Vital Signs: Last Vital Signs Pulse 86 09/02/24 08:10 BP 118/78 09/02/24 08:10 Pulse Ox 98 09/02/24 08:10 Oxygen Delivery Method Room Air 09/02/24 08:10 BMI result Body Mass Index 29.0 Tobacco/Smoking Status: Tobacco use Status Tobacco use date assessed 09/02/24 09/02/24 08:20 Patient Tobacco Use Status Never used Tobacco 09/02/24 08:09 e-Cigarette/Vaping Use Never Used 09/02/24 08:09 PHQ-9: PHQ-9 Score PHQ-9: Total score 6 09/02/24 08:36 Depression Screening Interpretation: Negative Thrive Assessment: Date of Thrive Assessment Date Thrive assessed 09/02/24 09/02/24 08:20 Currently or been in a relationship where the following occur: No concerns reported Const General: no acute distress HENMT Head: Yes normal to inspection Ears: hearing grossly normal bilaterally Mouth: Normal oral and palatal mucosa present Neck Neck: Yes supple Resp Effort & Inspection: normal respiratory effort Auscultation: clear to auscultation bilaterally Cardio Rhythm: regular rhythm Heart sounds: S1 normal heart sound present and S2 normal heart sound present GI Inspection: Yes normal to inspection Palpation (GI): Soft to palpation Percussion: Yes normal to percussion Auscultation: normal bowel sounds Coding Level of Care Code Est Pt Prev Care >65y(10846) Diagnoses HTN (hypertension) I10 Hypothyroid E03.9 Status post laparoscopic-assisted sigmoidectomy Z90.49 Depression F32.9 Annual physical exam Z00.00 Additional Codes CANDY-7 Assessment Billing - CANDY-7 Assessment Tool: CANDY-7 Assessment 94219 ([id number]) PHQ-9 - 93820 - PHQ-9 Billing: Yes ([id number]) Assessment & Plan Assessment & Plan (1) HTN (hypertension): Comment: BP goal less than 130/80 Code(s): I10 - Essential (primary) hypertension Category: Medical Plan: Continue current medications obtain fasting blood work today (2) Hypothyroid: Code(s): E03.9 - Hypothyroidism, unspecified Category: Medical Plan: Check TSH (3) Status post laparoscopic-assisted sigmoidectomy: Comment: 02/2024 for colovesical fistula at [facility] Code(s): Z90.49 - Acquired absence of other specified parts of digestive tract Category: Surgical Plan: Follow-up with [facility] (4) Depression: Code(s): F32.9 - Major depressive disorder, single episode, unspecified Category: Medical Plan: Increase sertraline to 50 mg (5) Annual physical exam: Code(s): Z00.00 - Encounter for general adult medical examination without abnormal findings Category: Medical Plan: Well-balanced diet regular physical activity discussed with the patient she will have a fasting blood work today. Patient will follow-up in 6 months Orders: Orders TSH reflex Free T4 Today E03.9 - Hypothyroidism, unspecified, I10 - Essential (primary) hypertension IRON PROFILE Today E03.9 - Hypothyroidism, unspecified, I10 - Essential (primary) hypertension Lipid Panel 6 Months E03.9 - Hypothyroidism, unspecified, I10 - Essential (primary) hypertension, Z00.00 - Encounter for general adult medical examination without abnormal findings Complete Blood Count Auto Diff 6 Months E03.9 - Hypothyroidism, unspecified, I10 - Essential (primary) hypertension, Z00.00 - Encounter for general adult medical examination without abnormal findings Vitamin D 25-OH Total 6 Months E03.9 - Hypothyroidism, unspecified, I10 - Essential (primary) hypertension, Z00.00 - Encounter for general adult medical examination without abnormal findings Comprehensive [place]. Panel Fast Today E03.9 - Hypothyroidism, unspecified, I10 - Essential (primary) hypertension Complete Blood Count Auto Diff Today E03.9 - Hypothyroidism, unspecified, I10 - Essential (primary) hypertension Vitamin D 25-OH Total Today E03.9 - Hypothyroidism, unspecified, I10 - Essential (primary) hypertension Comprehensive [place]. Panel Fast 6 Months E03.9 - Hypothyroidism, unspecified, I10 - Essential (primary) hypertension, Z00.00 - Encounter for general adult medical examination without abnormal findings TSH reflex Free T4 6 Months E03.9 - Hypothyroidism, unspecified, I10 - Essential (primary) hypertension, Z00.00 - Encounter for general adult medical examination without abnormal findings Medications: New sertraline 50 mg PO DAILY 90 tabs 1RF Changed From omeprazole 40 mg PO DAILY 90 caps 0RF To omeprazole 40 mg PO DAILY PRN
[2024-09-02 08:10] VITALS: BP 118/78; PULSE 86; O2SAT 98; BMI 29.0
== END 2024-09-02 08:52 | disposition home or self-care (01) ==
PROVIDERS: PCP Internal Medicine; Visit Provider Internal Medicine
DX: I10 Essential (primary) hypertension (principal); E03.9 Hypothyroidism, unspecified; Z90.49 Acquired absence of other specified parts of digestive tract; F32.9 Major depressive disorder, single episode, unspecified; Z00.00 Encounter for general adult medical examination without abnormal findings

== ENCOUNTER 2024-09-02 08:04 | Outpatient (REF) | payer MEDICARE, SELFPAY ==
--- OUTSIDE RECORDS SUMMARY | 2024-09-02 09:09 | XMS_ITS | Continuity of Care Document ---
Author Organization [facility] Address [address] [place] [address] [address] [place] [address] Phone Care Team Providers Care Job Tracer Name Role Phone Puja Romero MD, FACS, [...] Providers Copied on Encounter [facility], [address] [place] [address] [address], [place], [id number], [place] tel:[phone] [facility] No Information 3 Martell Saunders. [address], [address], [place]. tel:[phone] Referring Provider: Mayi Perez MD S, [address] [place] [address], [address]. tel:[phone] [facility], [address] [place] [address] [address], [id number], [place] tel:[phone] [facility] Chronic venous htn w oth comp of bilateral low extrm 3 Martell Saunders. [address] [facility], [address], [place], [address], [place]. tel:[phone] Referring Provider: Mayi Perez MD S, [address], [place], [address]. tel:[phone] Office/Outpt E&M Established 15 Mins [facility], [address], [place], [id number], [place] tel:[phone] [facility] [place] [facility] [place] Chronic venous hypertension w/o comp of bilateral low extrm 3 Martell GONZALEZ FACS T DRAKE Saunders. [address] [facility], [address], [place], [address], [place]. tel:[phone] Referring Provider: Mayi Perez MD S, [address], [place], [address]. tel:[phone] Family History Family Member Type Diagnosis Age At Onset No Information Payers Payer name Insurance type Covered republican ID Authoriza tion(s) [facility] AARP Medic are Complete CI [id number] Social History Type Description Quantity Date Captured [...]
[2024-09-02 09:53] LABS: MANUAL DIFF FLAG NO
[2024-09-02 10:07] LABS: Basophils Percent Auto 0.4 % (0-2); Eosinophils Absolute Auto 0.2 X10*3/uL (0.0-0.4); Eosinophils Percent Auto 3.2 % (0-4); Hematocrit 41.9 % (37.0-47.0); Hemoglobin 13.2 g/dl (12.0-16.0); Imm Gran Abs Auto 0.04 X10*3/uL (0.00-0.03); Imm Gran Pct Auto 0.7 % (0.0-0.4); Lymphocytes Absolute Auto 0.7 X10*3/uL (1.2-4.9); Lymphocytes Percent Auto 12.1 % (20-40); Mean Corpuscular HGB Conc 31.5 g/dl (31.0-35.0); Mean Corpuscular Hemoglobin 28.2 pg (27.0-33.0); Mean Corpuscular Volume 89.5 fL (80.0-98.0); Mean Platelet Volume 10.7 fL (9.4-12.3); Monocytes Absolute Auto 0.2 X10*3/uL (0.1-1.2); Neutrophils Absolute Auto 4.6 x10*3/uL (2.0-8.3); Neutrophils Percent Auto 79.6 % (45-73); Platelet Count 244 X10*3/uL (160-400); Red Blood Count 4.68 X10*6/uL (4.20-5.50); Red Cell Distribution Width 15.7 % (11.0-16.0); White Blood Count 5.7 X10*3/uL (4.8-10.8)
[2024-09-02 10:57] LABS: Alanine Aminotransferase 30 U/L (0-31); Albumin Level 3.6 g/dL (3.5-5.0); Alkaline Phosphatase 199 U/L (39-117); Anion Gap 10 (12-20); Aspartate Amino Transferase 26 U/L (5-31); Bilirubin Total 0.4 mg/dL (0.0-1.0); Blood Urea Nitrogen 13 mg/dL (9-16); Calcium 8.6 mg/dL (8.4-10.2); Carbon Dioxide 29 mmol/L (22-29); Chloride 106 mmol/L (96-108); Estimated Glomerular Filt Rate > 60; Glucose Fasting 97 mg/dL (60-99); Iron 43 mcg/dL (30-160); Percent Iron Saturation 15 % (15-50); Potassium 3.8 mmol/L (3.3-5.1); Sodium 141 mmol/L (135-145); TSH reflex Free T4 5.27 uIU/mL (0.32-4.0); Total Iron Binding Capacity 292 mcg/dL (228-428); Total Protein 7.6 g/dL (6.5-8.0); Unsaturated Iron Binding 249 ug/dL; Vitamin D 25-OH Total 19.9 ng/mL (>30)
[2024-09-02 11:44] LABS: Free T4 (Free Thyroxine) 0.95 ng/dL (0.71-1.85)
== END 2024-09-02 08:05 | disposition home or self-care (01) ==
LOC: HO.HMGCLDS 08:04
PROVIDERS: PCP Internal Medicine; Visit Provider Internal Medicine
DX: Z00.00 Encounter for general adult medical examination without abnormal findings (principal); I10 Essential (primary) hypertension; E03.9 Hypothyroidism, unspecified; F32.9 Major depressive disorder, single episode, unspecified; Z79.899 Other long term (current) drug therapy; Z90.49 Acquired absence of other specified parts of digestive tract
CPT/HCPCS: 36415; 80053; 82306; 83540; 84439; 84443; 85025; 96127; 99397

== ENCOUNTER 2025-03-02 09:26 | Outpatient (AMB) | payer MEDICARE, MEDICAID, SELFPAY ==
[2025-03-02 09:28] VITALS: BP 130/80; PULSE 85; RESP 20; TEMP 36.7; O2SAT 97; BMI 31.1
--- NOTE | 2025-03-02 09:28 | A.OFFPC_ITS ---
Vital Signs 03/02/25 09:28 Height 4 ft 10 in Weight 149 lb BMI 31.1 BP 130/80 Blood Pressure Location Rt brachial Position Sitting Respiration 20 Pulse 85 Pulse Source Pulse Oximeter Temp 98.0 F Temp Source Oral Pulse Oximetry (%) 97 Oxygen Delivery Method Room Air Intake Visit Reasons: 6 month follow up Intake Note: Pt is here today for 6 months follow up. Allergies acetaminophen [Tylenol] Allergy (Unknown, Verified 03/02/25 09:30) upset stomach sertraline Adverse Reaction (Intermediate, Verified 03/02/25 09:30) sleepiness Medication List - Last Reconciled 03/02/25 by Mayi Perez MD amlodipine 5 mg PO DAILY metoprolol succinate ER 100 mg PO DAILY Tobacco use date assessed: 03/02/25 Fall risk assessment: 2 + Falls in past year Last assessed Fall Risk: 03/02/25 Dental Screening Dental Screen Date: 03/02/25 Did you have a dental visit in the last 12 months?: No Did you have a dental problem in the last 6 months where you did not have access to dental care?: No Was dental information given to patient?: Patient declined HPI 6 month follow up HPI Details Patient presents for the follow-up on hypertension controlled on current medications. Patient has stopped taking sertraline for chronic anxiety. She is living with her son. Patient complains of chronic dyspnea on exertion getting progressively worse over last few months. Patient denies chest pain or palpitations with exertion. She denies PND orthopnea. Patient complains of chronic right shoulder pain and stiffness worse when trying to use it and reach overhead. [facility] Medical History GERD (gastroesophageal reflux disease) Anxiety Fatigue Knee osteoarthritis Depression Abdominal pain Dysuria Positive H. pylori test Chronic constipation Urinary frequency HTN (hypertension) Surgical History Hx of cataract surgery Hx of total knee replacement Hx of cholecystectomy H/O colonoscopy Family History Father Blind Mother Hypertension CHF (congestive heart failure) Social History Housing: House Patient Tobacco Use Status: Never used Tobacco e-Cigarette/Vaping Use: Never Used service: No Current occupational status: retired Cognitive needs: No Hearing needs: No Vision needs: Yes Questionnaire PHQ-9 Over the last 2 weeks, how often have you been bothered by any of the following problems? 1. Little interest or pleasure in doing things: several days 2. Feeling down, depressed, or hopeless: several days 3. Trouble falling or staying asleep, or sleeping too much: several days 4. Feeling tired or having little energy: several days 5. Poor appetite or overeating: several days 6. Feeling bad about yourself - or that you are a failure or have let yourself or your family down: not at all 7. Trouble concentrating on things, such as reading the newspaper or watching television: several days 8. Moving or speaking so slowly that other people could have noticed. Or the opposite - being so fidgety or restless that you have been moving around a lot more than usual: not at all 9. Thoughts that you would be better off or of hurting yourself in some way: not at all Total score: 6 Depression Screening Interpretation: Negative Depression Screening Done: Yes 81796 - PHQ-9 Billing: Yes Source: Developed by Drs. Idris Avendaño, Ebonie Muir, Sumanth Steele and colleagues, with an educational kathia from [employer]. Thrive Questionnaire Date Thrive assessed: 03/02/25 I am a: Patient What is your living situation today?: I have a steady place to live Within the past 12 months, did the food you bought not last and you didn't have the money to get more?: Never true Within the past 12 months, did you worry whether your food would run out before you got money to buy more?: Never true Do you have trouble paying for medicines?: No Do you have trouble getting transportation to medical appointments?: No Do you have trouble paying your heating and electricity bill?: No Do you have trouble taking care of your child, family member or friend?: No Do you have trouble with day-to-day activities such as bathing, preparing meals, shopping, managing finances, etc.?: No Are you currently unemployed and looking for a job?: No Are you interested in more education?: No Please select the resources that you would like help with: None Currently or been in a relationship where the following occur: No concerns reported THRIVE Score: 0 AUDIT C Alcohol Use Questionnaire (AUDIT-C) 1. How often do you have a drink containing alcohol?: Monthly or less 2. How many drinks containing alcohol do you have on a typical day when you are drinking?: 1 or 2 3. How often do you have six or more drinks on one occasion?: Never Total Score: 1 CANDY-7 AMB Questionnaire CANDY-7 Date CANDY - 7 assessed: 03/02/25 Feeling nervous, anxious, or on edge: 1 = Several days Not being able to stop or control worryin = Several days Worrying too much about different things: 1 = Several days Trouble relaxin = Several days Being so restless that it is hard to sit still: 0 = Not at all Becoming easily annoyed or irritable: 1 = Several days Feeling afraid as if something awful might happen: 0 = Not at all Total CANDY-7 score (0-4 normal; 5-9 mild; 10-14 moderate; 15-21 severe): 5 Source: Developed by Drs. Idris Avendaño, Ebonie Muir, Sumanth Steele and colleagues, with an educational kathia from [employer]. CANDY-7 Assessment Billing CANDY-7 Assessment Tool: CANDY-7 Assessment 45625 Review of Systems Const All systems reviewed & are unremarkable except as noted in HPI and below ENT Reports no additional complaints Card Reports no additional complaints Resp Reports no additional complaints GI Reports no additional complaints Reports no additional complaints Physical exam (Primary Care) Vital Signs: Last Vital Signs Temp 98.0 F 03/02/25 09:28 Pulse 85 03/02/25 09:28 Resp 20 03/02/25 09:28 BP 130/80 03/02/25 09:28 Pulse Ox 97 03/02/25 09:28 Oxygen Delivery Method Room Air 03/02/25 09:28 BMI result Body Mass Index 31.1 Tobacco/Smoking Status: Tobacco use Status Tobacco use date assessed 03/02/25 03/02/25 09:36 Patient Tobacco Use Status Never used Tobacco 03/02/25 09:36 e-Cigarette/Vaping Use Never Used 03/02/25 09:36 PHQ-9: PHQ-9 Score PHQ-9: Total score 6 03/02/25 09:36 Depression Screening Interpretation: Negative Thrive Assessment: Date of Thrive Assessment Date Thrive assessed 03/02/25 03/02/25 09:36 Currently or been in a relationship where the following occur: No concerns reported Const General: no acute distress HENMT Head: Yes normal to inspection Mouth: Normal oral and palatal mucosa present Eyes General: appearance normal, both eyes and all related structures Resp Effort & Inspection: normal respiratory effort Auscultation: clear to auscultation bilaterally Cardio Rhythm: regular rhythm Heart sounds: S1 normal heart sound present and S2 normal heart sound present GI Inspection: Yes normal to inspection Palpation (GI): Soft to palpation Percussion: Yes normal to percussion Auscultation: normal bowel sounds Extrem Other: There is significantly decreased range of motion right shoulder. Anterior lateral aspect tenderness no joint deformity General: Yes no clubbing, cyanosis or edema Coding Level of Care Code Est Pt Level 4 (28391) Complex EM visit Add On G2211 Diagnoses EVANGELISTA (dyspnea on exertion) R06.09 Vitamin D deficiency E55.9 HTN (hypertension) I10 Shoulder pain, right M25.511 Additional Codes CANDY-7 Assessment Billing - CANDY-7 Assessment Tool: CANDY-7 Assessment 19543 ([id number]) PHQ-9 - 64210 - PHQ-9 Billing: Yes ([id number]) Assessment & Plan Assessment & Plan (1) EVANGELISTA (dyspnea on exertion): Code(s): R06.09 - Other forms of dyspnea Category: Medical Plan: For chronic dyspnea on exertion obtain echocardiogram to evaluate for ejection fraction (2) Vitamin D deficiency: Code(s): E55.9 - Vitamin D deficiency, unspecified Category: Medical Plan: Continue vitamin-D supplement (3) HTN (hypertension): Comment: BP goal less than 130/80 Code(s): I10 - Essential (primary) hypertension Category: Medical Plan: Continue current medications (4) Shoulder pain, right: Code(s): M25.511 - Pain in right shoulder Category: Medical Plan: Obtain x-ray of right shoulder and referred to physical therapy Orders: Orders Comprehensive [place]. Panel Fast 2 Months E55.9 - Vitamin D deficiency, unspecified, I10 - Essential (primary) hypertension PT Evaluation and Treatment Today M25.511 - Pain in right shoulder CA echo transthoracic complete Today R06.09 - Other forms of dyspnea Vitamin D 25-OH Total 2 Months E55.9 - Vitamin D deficiency, unspecified, I10 - Essential (primary) hypertension Complete Blood Count Auto Diff 2 Months E55.9 - Vitamin D deficiency, unspecified, I10 - Essential (primary) hypertension XR shoulder RT min 2V Today M25.511 - Pain in right shoulder Medications: New cholecalciferol (vitamin D3) 50 mcg PO DAILY 90 tabs 3RF Refilled metoprolol succinate ER 100 mg PO DAILY 90 tabs 3RF I10 - Essential (primary) hypertension
--- OUTSIDE RECORDS SUMMARY | 2025-03-02 10:13 | XMS_ITS | Clinical Summary ---
Author Organization [facility] Facility Address [address] [place] [address], [place] [address] Care Team Providers Care Flying Teacher Name Role Phone Mayi Perez MD Primary Care Provider [phone] Social History Tobacco Use Types Packs/Day Years Used Date Smoking Tobacco: Never Assessed Comments Unknown Sex and Gender Information Value Date Recorded Sex Assigned at Not on file Legal Sex Female 3:39 PM EDT Gender Identity Not on file Sexual Orientation Not on file Plan of Treatment Health Maintenance Due Date Last Done Comments Pneumococcal Vaccine: 50+ Ye ars (2 of 2 - PCV) 10/24/2014 10/24/2013 Influenza Vaccine (Season Ended) 2025 07/15/20 07 Hepatitis B Vaccine Aged Out No longe r eligible based on patient's age to complete this topic Insurance [id number] Medicare Care Teams Flying Teacher Relationship Specialty Start Date End Date Mayi Perez MD [facility] [address] [place] [address] [id number] [place] [address] PCP - General Internal Medicine 03/04/24
== END 2025-03-02 10:04 | disposition home or self-care (01) ==
LOC: HO.HMCC 09:27
PROVIDERS: PCP Internal Medicine; Visit Provider Internal Medicine
DX: R06.09 Other forms of dyspnea (principal); E55.9 Vitamin D deficiency, unspecified; I10 Essential (primary) hypertension; M25.511 Pain in right shoulder

== ENCOUNTER 2025-03-02 09:26 | Outpatient (REF) | payer MEDICARE, MEDICAID, SELFPAY ==
--- NOTE | ~2025-03-02 | XR_ITS ---
EXAMINATION: XR SHOULDER, RIGHT CLINICAL INFORMATION: M25.511 - Pain in right shoulder COMPARISON: None available. TECHNIQUE: Three views of the right shoulder. FINDINGS: Mild osteopenia. No fracture, dislocation, or suspicious bone lesion. Normal alignment. The glenohumeral joint demonstrate mild degenerative arthrosis. The AC joint demonstrates mild degenerative arthrosis. There is a type II acromion. No undersurface spurring. The subacromial space is preserved. Remainder of the soft tissue and bony structures appear normal. XR/XR shoulder RT min 2V IMPRESSION: 1. No acute bony abnormalities right shoulder. 2. Mild degenerative arthritis in the glenohumeral joint and AC joint. Electronically signed by: Bran Cruz MD 03/02/2025 10:47 AM EDT
== END 2025-03-02 09:27 | disposition home or self-care (01) ==
LOC: HO.HMGCX 09:26
PROVIDERS: PCP Internal Medicine; Visit Provider Internal Medicine
DX: M25.511 Pain in right shoulder (principal); R06.09 Other forms of dyspnea; E55.9 Vitamin D deficiency, unspecified; I10 Essential (primary) hypertension; Z13.30 Encounter for screening examination for mental health and behavioral disorders, unspecified; Z13.31 Encounter for screening for depression
CPT/HCPCS: 73030; 96127; 99212

== ENCOUNTER → 2025-03-02 10:09 | Outpatient (BNV) | payer MEDICARE, MEDICAID, SELFPAY | PROVIDERS: PCP Internal Medicine; Visit Provider Radiology Diagnostic Radiology | DX: M25.511 Pain in right shoulder (principal) | CPT/HCPCS: 73030 ==

== ENCOUNTER 2025-03-31 10:04 | Outpatient (RCR) | payer MEDICARE, MEDICAID, SELFPAY ==
--- NOTE | 2025-03-31 11:41 | MHC.PT.EP ---
[facility] [place] Office [place] Office [place] Office [address] [phone] F: [phone] F: [phone] F: [phone] F: [phone] Physical Therapy Plan of Care Date of Evaluation: 03/31/25 Date of Surgery: Diagnosis: This is a 80 yo female presenting to skilled PT with a script for pain in R shoulder. Assessment: This is a 80 yo female presenting to skilled PT with a script for pain in R shoulder. Patient reporting ongoing pain now for about 6 months. Pain is located pec, UT, posterior GHJ and anterior GHJ. Pain is sharp. Pain increases at night, lifting something heavy, reaching overhead, laying on her R side and reaching behind her. She has no pain at rest. She has not seen any other specialties yet. Assessment reveals pain that ranges from up to a 8/10 at the worst. Patient demos decreased R shoulder and cervical ROM, strength of B shoulder's, TTP at GHJ joint line, UT and impaired posture with forward head, C7 prominence, and rounded shoulders. Based on functional limitations, impaired QOL and pain tolerance patient is a good candidate for skilled PT 2x/wk for 4wks (patient only wants to do 1 follow up and continue HEP on her own). Frequency and Duration: The patient will be seen 2x/wk for 4wks Short Term Goals: (In 2 weeks) Demo I with HEP Improve shoulder AROM by at least 10 degs Demo proper scapular recruitment with appropriate shoulder strengthening exercises Intermediate Goals: (in 4 wks) Improve shoulder nonpainful AROM to almost near equal B Demo at least 1 grade improvement in MMT for shoulder Improve SPADI by at least 10 points Improve overall functional QOL by at least 50% Treatment Plan: Modalities to reduce pain, spasms and effusion. Manual therapy to restore motion and function. Therapeutic exercise to improve strength and flexibility. Neuromuscular re-education for posture and balance. Therapeutic activities to return to functional activities of daily living. Electronically signed by: Rosanna Montanez PT Please sign and return to therapist. Thank you for your referral.
--- NOTE | 2025-04-23 09:29 | MHC.PT.DC ---
[facility] [place] Office [place] Office [place] Office [address] Gareth Williamson [address] [phone] F: [phone] F: [phone] F: [phone] F: [phone] Physical Therapy Discharge Report Diagnosis: This is a 80 yo female presenting to skilled PT with a script for pain in R shoulder. Date of Surgery: Date of Evaluation: 03/31/25 Date of Discharge: 04/23/25 Treatments to Date: 1 Cancellations to Date: 0 No Shows to Date: 0 Discharge Status: Achieved Goals Improved Function Independent with HEP Patient Elected to Stop Discharge Summary: This is a 80 yo female presenting to skilled PT with a script for pain in R shoulder. Patient reporting ongoing pain now for about 6 months. Pain is located pec, UT, posterior GHJ and anterior GHJ. Pain is sharp. Pain increases at night, lifting something heavy, reaching overhead, laying on her R side and reaching behind her. She has no pain at rest. She has not seen any other specialties yet. Assessment reveals pain that ranges from up to a 8/10 at the worst. Patient demos decreased R shoulder and cervical ROM, strength of B shoulder's, TTP at GHJ joint line, UT and impaired posture with forward head, C7 prominence, and rounded shoulders. Based on functional limitations, impaired QOL and pain tolerance patient is a good candidate for skilled PT 2x/wk for 4wks (patient only wants to do 1 follow up and continue HEP on her own). I did book her a follow up however patient called to cancel this and her chart was DC'd. Electronically signed by: Rosanna Montanez, PT Please sign and return to therapist. Thank you for your referral.
== END 2025-04-23 09:29 | disposition home or self-care (01) ==
LOC: HO.PTCHIC 10:04
PROVIDERS: PCP Internal Medicine; Visit Provider Internal Medicine
DX: M25.511 Pain in right shoulder (principal)
CPT/HCPCS: 97110; 97162

== ENCOUNTER → 2025-05-28 11:04 | Outpatient (REF) | payer MEDICARE, MEDICAID, SELFPAY ==
--- NOTE | 2025-05-28 11:09 | CA_ITS ---
Transthoracic Echocardiogram Patient (Last, First, Middle): Miriam Nguyen M Gender: F Date of : 1945 Age: 80 Procedure Date: 05/28/2025 Procedure Type: Transthoracic Echocardiogram Location: OP Height: 134.62 cm Weight: 66.68 kg BSA: 1.50 m2 Heart Rate: 69 bpm BP: 130 / 78 mmHg Metal Sprayer: JACINTA Referring MD: Mayi Perez MD Assistant Food Service Manager: Fernando Perez MD Symptoms: R06.09 - Other forms of dyspnea Study Quality: Fair ECG Rhythm: Sinus Conclusions: - 1. Hyperdynamic LV ejection fraction of greater than 70% with impaired relaxation filling pattern with mild asymmetric septal hypertrophy 2. Normal cardiac valvular Dopplers 3. No gross pericardial effusion Findings Procedure Information The quality of the study was technically difficult. The study quality is limited by lung artifact. Left Ventricle Normal left ventricular cavity size. There is normal left ventricular wall thickness. The left ventricular systolic function is hyperdynamic. The visually estimated ejection fraction is >70%. Spectral Doppler is indicative of an impaired relaxation filling pattern. E/E prime ratio is between 8 and 15 consistent with indeterminate filling pressures. There is mild septal asymmetric hypertrophy. Right Ventricle Normal right ventricular cavity size and systolic function. Atria Both atria are normal in size. There is no evidence of interatrial shunt. Aortic Valve Normal aortic valve structure and function. There is no aortic valve stenosis. There is no aortic valve regurgitation. Mitral Valve Normal mitral valve structure and function. There is trace mitral valve regurgitation. There is no mitral valve stenosis. Pulmonic Valve The pulmonic valve is likely normal. Tricuspid Valve Normal tricuspid valve structure. Tricuspid regurgitation envelope is inadequate for calculation of right ventricular systolic pressure. Normal right atrial pressure. Great Vessels All visible segments of the aorta are normal in size. The pulmonary artery was not well visualized. There is no dilatation of the ascending aorta measuring 3.10 cm. Venous The inferior vena cava is normal in size and collapses greater than 50% with inspiration. Pericardium/Pleural There is no evidence of pericardial effusion. Prior Study Comparison No prior study available for comparison. Measurements 2D Linear Measurements IVSd: 1.39 0.6-0.9/0.6-1.0 cm LVIDd: 3.40 3.9-5.3/4.2-5.9 cm LVIDd Index: 2.27 2.4-3.2/2.2-3.1 cm/m2 LVIDs: 2.09 2.0-3.6 cm LVPWd: 0.78 0.7-1.1 cm LA Diam: 3.30 2.7-3.8/3.0-4.0 cm LAIDs Index: 2.20 1.5-2.3 cm/m2 LV Mass: 138.84 67-162/88-224 g LV Mass Index: 92.56 43-95/49-115 g/m2 LVOT Diam: 1.90 3.0+(-)1.3 cm 2D Systolic Function EF 4C: 72.20 >55% EF 2C: 73.90 >55% EF BiP: 73.00 >55% Mitral Valve MV Pk E: 0.85 MV PK A: 0.99 MV Decel Time: 211.00 E/A: 0.90 E'Lateral: 6.74 E'Medial: 4.35 E/E' Med: 19.60 E/E' Lat: 12.70 PHT: 62.00 MVA PHT: 3.55 Decel Camp: 4.04 Aortic Valve AoV Pk Bernard: 1.27 AoV Pk Grad: 6.00 KARIS: 2.21 LVOT LVOT Pk Bernard: 0.98 LVOT Mn Bernard: 0.76 LVOT VTI: 0.25 LVOT Pk Grad: 4.00 LVOT Mn Grad: 2.00 LVOT Diam: 1.90 LVOT Area: 2.84 Diastolic Function MV Pk E: 0.85 MV Pk A: 0.99 E/A: 0.90 E'Medial: 4.35 E/E' Med: 19.60 E' Laterial: 6.74 E/E' Lat: 12.70 Right Ventricle TAPSE (mm): 17.80 TVS' Bernard: 11.10 Great Vessels Aorta Sinus of Valsalva: 2.80 2.0-3.5 cm Ao Asc: 3.10 2.1-3.4 cm Ao Arch: 2.90 Pulmonary Veins Pulm Vein S/D 1.70 Pulmonary Valve PV Pk Bernard: 0.86 Peak PV Grad: 3.00 Updated in Other Vendor System with Status of Final Fernando Perez MD electronically signed on 05/28/2025 2:16:15 PM with status of Final
--- OUTSIDE RECORDS SUMMARY | 2025-05-28 15:23 | XMS_ITS | Clinical Summary ---
Author Organization [facility] Facility Address [address] [place] [address], [place] [address] Care Team Providers Care Gas Substation Operator Name Role Phone Mayi Perez MD Primary Care Provider [phone] Social History Tobacco Use Types Packs/Day Years [...] 2 - PCV) 10/24/2014 10/24/2013 Influenza Vaccine (#1) 2025 07/15/2007 Hepatitis B Vaccine Aged Out No longe r eligible based on patient's age to complete this topic Insurance Medicare Care Teams Gas Substation Operator Relationship Specialty Start Date End Date Mayi Perez MD [facility] [address] [place] [address] [phone] [place] [address] PCP - General Internal Medicine 03/04/24
== END ==
LOC: HO.CARD 11:04
PROVIDERS: PCP Internal Medicine; Visit Provider Internal Medicine
DX: R06.09 Other forms of dyspnea (principal)
CPT/HCPCS: 93306

== ENCOUNTER → 2025-05-28 11:09 | Outpatient (BNV) | payer MEDICARE, MEDICAID, SELFPAY | PROVIDERS: PCP Internal Medicine; Visit Provider Internal Medicine Cardiovascular Disease | DX: I42.2 Other hypertrophic cardiomyopathy (principal); I51.89 Other ill-defined heart diseases | CPT/HCPCS: 93306 ==

== ENCOUNTER 2025-06-23 11:35 | Outpatient (REF) | payer MEDICARE, MEDICAID, SELFPAY ==
[2025-06-23 13:26] LABS: MANUAL DIFF FLAG NO
[2025-06-23 13:31] LABS: Hematocrit 43.5 % (37.0-47.0); Hemoglobin 13.9 g/dl (12.0-16.0); Imm Gran Abs Auto 0.02 X10*3/uL (0.00-0.03); Imm Gran Pct Auto 0.4 % (0.0-0.4); Lymphocytes Absolute Auto 0.9 X10*3/uL (1.2-4.9); Mean Corpuscular HGB Conc 32.0 g/dl (31.0-35.0); Mean Corpuscular Hemoglobin 29.0 pg (27.0-33.0); Mean Corpuscular Volume 90.6 fL (80.0-98.0); NRBC Abs Auto 0.000 X10*3/uL (0.0-0.012); NRBC Pct Auto 0.0 /100WBC (0.0-0.2); Platelet Count 230 X10*3/uL (160-400); Red Blood Count 4.80 X10*6/uL (4.20-5.50); White Blood Count 5.5 X10*3/uL (4.8-10.8)
[2025-06-23 14:15] LABS: Alanine Aminotransferase 30 U/L (0-31); Albumin Level 4.1 g/dL (3.5-5.0); Alkaline Phosphatase 248 U/L (39-117); Anion Gap 11 (12-20); Aspartate Amino Transferase 33 U/L (5-31); Blood Urea Nitrogen 11 mg/dL (9-16); Calcium 8.7 mg/dL (8.4-10.2); Carbon Dioxide 28 mmol/L (22-29); Chloride 107 mmol/L (96-108); Estimated Glomerular Filt Rate > 60; Potassium 3.7 mmol/L (3.3-5.1); Sodium 142 mmol/L (135-145); Total Protein 7.7 g/dL (6.5-8.0)
[2025-06-23 14:47] LABS: Free T4 (Free Thyroxine) 0.74 ng/dL (0.71-1.85)
== END 2025-06-23 11:36 | disposition home or self-care (01) ==
LOC: HO.HMGCLDS 11:35
PROVIDERS: PCP Internal Medicine; Visit Provider Internal Medicine
DX: I10 Essential (primary) hypertension (principal); E03.9 Hypothyroidism, unspecified; E55.9 Vitamin D deficiency, unspecified; M25.572 Pain in left ankle and joints of left foot
CPT/HCPCS: 36415; 80053; 82306; 84439; 84443; 85025; 99212

== ENCOUNTER 2025-06-23 11:35 | Outpatient (AMB) | payer MEDICARE, MEDICAID, SELFPAY ==
[2025-06-23 11:37] VITALS: BP 126/78; PULSE 94; RESP 19; TEMP 36.6; O2SAT 97; BMI 31.3
--- NOTE | 2025-06-23 11:37 | A.OFFPC_ITS ---
Vital Signs 06/23/25 11:37 Height 4 ft 10 in Weight 150 lb BMI 31.3 BP 126/78 Blood Pressure Location Lt brachial Position Sitting Respiration 19 Pulse 94 Pulse Source Pulse Oximeter Temp 97.8 F Temp Source Oral Pulse Oximetry (%) 97 Oxygen Delivery Method Room Air Intake Visit Reasons: Pre op NEOS Intake Note: Pt is here today for pre op visit. Pt is having surgery on her L ankle on 07/01/25. Allergies acetaminophen (Tylenol) Allergy (Unknown, Verified 06/23/25 11:42) upset stomach sertraline Adverse Reaction (Intermediate, Verified 06/23/25 11:42) sleepiness Medication List - Last Reconciled 06/23/25 by Mayi Perez MD amlodipine 5 mg PO DAILY blood pressure test kit-medium As directed cholecalciferol (vitamin D3) 50 mcg PO DAILY metoprolol succinate ER 100 mg PO DAILY sertraline 50 mg PO DAILY Tobacco use date assessed: 06/23/25 Fall risk assessment: 2 + Falls in past year Last assessed Fall Risk: 06/23/25 Dental Screening Dental Screen Date: 03/02/25 HPI Pre op NEOS HPI Details Pt presents for preop for L ankle surgery. HTN is stable on meds. Chronic anxiety is controlled on sertraline [facility] Medical History (Updated 06/23/25 @ 12:32 by Mayi Perez MD) Vitamin D deficiency Left ankle pain EVANGELISTA (dyspnea on exertion) GERD (gastroesophageal reflux disease) Anxiety Fatigue Knee osteoarthritis Depression Abdominal pain Dysuria Positive H. pylori test Chronic constipation Urinary frequency HTN (hypertension) Surgical History Hx of cataract surgery Hx of total knee replacement Hx of cholecystectomy H/O colonoscopy Family History Father Blind Mother Hypertension CHF (congestive heart failure) Social History Housing: House Patient Tobacco Use Status: Never used Tobacco e-Cigarette/Vaping Use: Never Used service: No Current occupational status: retired Cognitive needs: No Hearing needs: No Vision needs: Yes Questionnaire Thrive Questionnaire Date Thrive assessed: 08/26/24 I am a: Patient What is your living situation today?: I have a steady place to live Within the past 12 months, did the food you bought not last and you didn't have the money to get more?: Never true Within the past 12 months, did you worry whether your food would run out before you got money to buy more?: Never true Do you have trouble paying for medicines?: No Do you have trouble getting transportation to medical appointments?: No Do you have trouble paying your heating and electricity bill?: No Do you have trouble taking care of your child, family member or friend?: No Do you have trouble with day-to-day activities such as bathing, preparing meals, shopping, managing finances, etc.?: No Are you currently unemployed and looking for a job?: No Are you interested in more education?: No Please select the resources that you would like help with: None Currently or been in a relationship where the following occur: No concerns reported THRIVE Score: 0 CANDY-7 AMB Questionnaire CANDY-7 Date CANDY - 7 assessed: 03/02/25 Source: Developed by Drs. Idris Avendaño, Ebonie Muir, Sumanth Steele and colleagues, with an educational kathia from [employer]. Review of Systems Const All systems reviewed & are unremarkable except as noted in HPI and below Eyes Reports no additional complaints ENT Reports no additional complaints Card Reports no additional complaints Resp Reports no additional complaints GI Reports no additional complaints Physical exam (Primary Care) Vital Signs: Last Vital Signs Temp 97.8 F 06/23/25 11:37 Pulse 94 06/23/25 11:37 Resp 19 06/23/25 11:37 BP 126/78 06/23/25 11:37 Pulse Ox 97 06/23/25 11:37 Oxygen Delivery Method Room Air 06/23/25 11:37 BMI result Body Mass Index 31.3 Tobacco/Smoking Status: Tobacco use Status Tobacco use date assessed 06/23/25 06/23/25 11:45 Patient Tobacco Use Status Never used Tobacco 06/23/25 11:45 e-Cigarette/Vaping Use Never Used 06/23/25 11:45 Thrive Assessment: Date of Thrive Assessment Date Thrive assessed 08/26/24 06/23/25 11:45 Currently or been in a relationship where the following occur: No concerns reported Const General: no acute distress HENMT Head: Yes normal to inspection Mouth: Normal oral and palatal mucosa present Eyes General: appearance normal, both eyes and all related structures Neck Neck: Yes supple Resp Effort & Inspection: normal respiratory effort Auscultation: clear to auscultation bilaterally Cardio Rhythm: regular rhythm Heart sounds: S1 normal heart sound present and S2 normal heart sound present GI Inspection: Yes normal to inspection Palpation (GI): Soft to palpation Percussion: Yes normal to percussion Coding Level of Care Code Est Pt Level 4 (46303) Diagnoses HTN (hypertension) I10 Hypothyroid E03.9 Vitamin D deficiency E55.9 Left ankle pain M25.572 Assessment & Plan Assessment & Plan (1) HTN (hypertension): Comment: BP goal less than 130/80 Code(s): I10 - Essential (primary) hypertension Category: Medical Plan: Continue metoprolol and amlodipine (2) Hypothyroid: Comment: Borderline elevated TSH, continue to monitor the level Code(s): E03.9 - Hypothyroidism, unspecified Category: Medical Plan: Check TSH (3) Vitamin D deficiency: Code(s): E55.9 - Vitamin D deficiency, unspecified Category: Medical Plan: Continue vitamin-D supplement (4) Left ankle pain: Comment: Posterior tibial tendon dysfunction, subtalar arthritis, pes planovalgus deformity going for surgery by [facility] 06/2025 Code(s): M25.572 - Pain in left ankle and joints of left foot Category: Medical Plan: EKG showed normal sinus rhythm no ST-T changes. Patient is medically cleared for left ankle surgery Orders: Orders Comprehensive Met. Panel Today E03.9 - Hypothyroidism, unspecified, I10 - Essential (primary) hypertension Complete Blood Count Auto Diff Today E03.9 - Hypothyroidism, unspecified, I10 - Essential (primary) hypertension TSH reflex Free T4 Today E03.9 - Hypothyroidism, unspecified, I10 - Essential (primary) hypertension Vitamin D 25-OH Total Today E55.9 - Vitamin D deficiency, unspecified AMB EKG-In Office Today I10 - Essential (primary) hypertension, R06.09 - Other forms of dyspnea Medications: New amlodipine 5 mg PO DAILY 90 tabs 3RF
--- OUTSIDE RECORDS SUMMARY | 2025-06-23 14:40 | XMS_ITS | Clinical Summary ---
Author Organization [facility] Facility Address [address] [place] [address], [place] [address] Care Team Providers Care Multi Township Assessor Name Role Phone Mayi Perez MD Primary Care Provider [phone] Social History Tobacco Use Types Packs/Day Years [...] complete this topic Insurance Medicare Care Teams Multi Township Assessor Relationship Specialty Start Date End Date Mayi Perez MD [facility] [address] [place] [address] [phone] [place] [address] PCP - General Internal Medicine 03/04/24
== END 2025-06-23 12:34 | disposition home or self-care (01) ==
LOC: HO.HMCC 11:36
PROVIDERS: PCP Internal Medicine; Visit Provider Internal Medicine
DX: I10 Essential (primary) hypertension (principal); E03.9 Hypothyroidism, unspecified; E55.9 Vitamin D deficiency, unspecified; M25.572 Pain in left ankle and joints of left foot